=== PATIENT | male | born 1945 | race Native Hawaiian/Other Pacific Islander ===

== ENCOUNTER 2016-07-20 10:24 | Outpatient (CLI) | payer OTHER ==
[~2016-07-20 10:24] MED LIST: ASA LOW STR81 MG PO; FOLI1TAB26 PO; FOLIC ACID5 MG PO; ISOSORB MONO30 MG PO; METO25TA4 PO; NITR0.2D21 TD; NITRO-DUR0.4 MG/HR SL; NITROSTAT0.4 MG SL; PRAV40TA PO; PRAVACHOL20 MG PO; PROAIR HFA IN; SIMV20TA2 PO
[2016-07-20 10:43] LABS: PLATELET COUNT 186 K/uL (142-355)
[2016-07-20 11:57] LABS: POTASSIUM 4.6 mmol/L (3.6-5.2)
== END 2016-07-20 19:16 | disposition home or self-care (01) ==
LOC: LABW 10:24
PROVIDERS: Internal Medicine Cardiovascular Disease
DX: I25.10 Atherosclerotic heart disease of native coronary artery without angina pectoris (principal); E78.4 Other hyperlipidemia; I10 Essential (primary) hypertension; Z79.899 Other long term (current) drug therapy; Z51.81 Encounter for therapeutic drug level monitoring
CPT/HCPCS: 36415; 80048; 80061; 80076; 85027

== ENCOUNTER 2016-09-26 08:52 | Outpatient (CLI) | payer OTHER ==
[2016-09-26 09:21] LABS: POTASSIUM 4.8 mmol/L (3.6-5.2)
== END 2016-09-26 19:19 | disposition home or self-care (01) ==
LOC: LABW 08:52
PROVIDERS: Internal Medicine
DX: I10 Essential (primary) hypertension (principal)
CPT/HCPCS: 36415; 80053; 80061; 81000; 82043; 82570

== ENCOUNTER 2016-09-28 09:16 | Outpatient (CLI) | payer OTHER | END 2016-09-28 19:26 | disposition home or self-care (01) | LOC: RESP 09:16 | DX: J44.9 Chronic obstructive pulmonary disease, unspecified (principal) | CPT/HCPCS: 94640; 94664 ==

== ENCOUNTER 2016-09-30 09:42 | Outpatient (CLI) | payer OTHER | END 2016-09-30 10:45 | disposition home or self-care (01) | LOC: LAB 09:42 | DX: Z12.11 Encounter for screening for malignant neoplasm of colon (principal) | CPT/HCPCS: 82272 ==

== ENCOUNTER 2016-10-01 08:56 | Outpatient (CLI) | payer OTHER | END 2016-10-01 19:51 | disposition home or self-care (01) | LOC: LAB 08:56 | DX: Z12.11 Encounter for screening for malignant neoplasm of colon (principal) | CPT/HCPCS: 82272 ==

== ENCOUNTER 2016-10-02 11:57 | Outpatient (CLI) | payer OTHER | END 2016-10-02 13:30 | disposition home or self-care (01) | LOC: LAB 11:57 | DX: Z12.11 Encounter for screening for malignant neoplasm of colon (principal); Z79.899 Other long term (current) drug therapy | CPT/HCPCS: 82272 ==

== ENCOUNTER 2017-01-05 14:24 | Outpatient (CLI) | payer OTHER | END 2017-01-05 15:30 | disposition home or self-care (01) | LOC: RAD 14:24 | DX: J40 Bronchitis, not specified as acute or chronic (principal) ==

== ENCOUNTER 2017-05-10 08:12 | Outpatient (CLI) | payer OTHER | END 2017-05-10 19:05 | disposition home or self-care (01) | LOC: LABW 08:12 | PROVIDERS: Internal Medicine Cardiovascular Disease | DX: E78.4 Other hyperlipidemia (principal) | CPT/HCPCS: 36415; 80061 ==

== ENCOUNTER 2017-12-18 08:31 | Outpatient (CLI) | payer OTHER ==
[2017-12-18 09:41] LABS: PLATELET COUNT 173 K/uL (142-355)
[2017-12-18 10:01] LABS: POTASSIUM 4.3 mmol/L (3.6-5.2)
== END 2017-12-18 19:35 | disposition home or self-care (01) ==
LOC: US 08:31
PROVIDERS: Internal Medicine
DX: I10 Essential (primary) hypertension (principal); I71.4 Abdominal aortic aneurysm, without rupture
CPT/HCPCS: 36415; 80053; 80061; 81000; 84443; 85027

== ENCOUNTER 2018-01-03 09:11 | Outpatient (CLI) | payer OTHER | END 2018-01-03 19:17 | disposition home or self-care (01) | LOC: LABW 09:11 | PROVIDERS: Internal Medicine Cardiovascular Disease | DX: E78.5 Hyperlipidemia, unspecified (principal) | CPT/HCPCS: 36415; 80061 ==

== ENCOUNTER 2018-03-23 08:03 | Outpatient (CLI) | payer OTHER ==
[2018-03-23 08:54] LABS: PLATELET COUNT 196 K/uL (142-355)
[2018-03-23 08:58] LABS: POTASSIUM 4.7 mmol/L (3.6-5.2)
== END 2018-03-23 19:46 | disposition home or self-care (01) ==
LOC: LABW 08:03
PROVIDERS: Internal Medicine
DX: Z00.00 Encounter for general adult medical examination without abnormal findings (principal); E78.49 Other hyperlipidemia; Z12.5 Encounter for screening for malignant neoplasm of prostate
CPT/HCPCS: 36415; 80053; 80061; 81000; 84153; 84443; 85027

== ENCOUNTER 2018-04-27 12:20 | Emergency (ER) | payer OTHER ==
[~2018-04-27] VITALS: Ht 165.1 cm; Wt 65.8 kg
[2018-04-27 12:54] LABS: PLATELET COUNT 201 K/uL (142-355)
[2018-04-27 13:05] LABS: POTASSIUM 4.6 mmol/L (3.6-5.2); SODIUM 140 mmol/L (136-145)
[2018-04-27 13:35] LABS: PARTIAL THROMBOPLASTIN TIME 25.2 SECONDS (24.5-33.6)
[2018-04-27] MEDS ORDERED: DIOVAN40 MG PO (14:41)
[2018-04-27] MEDS ORDERED: PANTOPRAZOLE 40MG TA PO (14:42)
[2018-04-27] MEDS ORDERED: MOBIC7.5 M1 PO (14:42)
[2018-04-27] MEDS ORDERED: PRASUGREL10 MG PO (14:42)
[2018-04-27 14:50] VITALS: BP 109/60; TEMP 98
== END 2018-04-27 14:50 | disposition home or self-care (01) ==
LOC: ED 12:20
PROVIDERS: Emergency Medicine
DX: R07.89 Other chest pain (principal); I25.10 Atherosclerotic heart disease of native coronary artery without angina pectoris; R00.1 Bradycardia, unspecified
CPT/HCPCS: 36415; 80053; 82550; 84484; 85027; 85610; 85730; 93005; 99283

== ENCOUNTER 2018-05-03 07:57 | Outpatient (CLI) | payer OTHER ==
[~2018-05-03 07:57] MED LIST changes: +DIOVAN40 MG PO; +MOBIC7.5 M1 PO; +PANTOPRAZOLE 40MG TA PO; +PRASUGREL10 MG PO
== END 2018-05-03 21:40 | disposition home or self-care (01) ==
LOC: LABW 07:57
PROVIDERS: Internal Medicine Cardiovascular Disease
DX: E78.5 Hyperlipidemia, unspecified (principal)
CPT/HCPCS: 36415; 80061

== ENCOUNTER 2019-01-03 05:02 | Emergency (ER) | payer OTHER ==
[~2019-01-03] VITALS: Ht 165.1 cm; Wt 76.2 kg
[2019-01-03 05:52] LABS: PLATELET COUNT 213 K/uL (142-355)
[2019-01-03 06:24] LABS: POTASSIUM 4.8 mmol/L (3.6-5.2)
[2019-01-03 08:45] VITALS: BP 152/83; TEMP 99
== END 2019-01-03 08:45 | disposition home or self-care (01) ==
LOC: ED 05:02
PROVIDERS: Emergency Medicine
DX: R51 Headache (principal); R50.9 Fever, unspecified; R05 Cough
CPT/HCPCS: 36415; 80053; 81000; 85027; 87502; 87651; 93005; 96360; 99284

== ENCOUNTER 2019-01-17 08:43 | Outpatient (CLI) | payer OTHER | END 2019-01-17 23:19 | disposition home or self-care (01) | LOC: CT 08:43 | DX: R91.1 Solitary pulmonary nodule (principal) | CPT/HCPCS: 36415; 82565; 84520; Q9963 ==

== ENCOUNTER 2020-06-01 15:27 | Outpatient (CLI) | payer OTHER | END 2020-06-01 19:28 | disposition home or self-care (01) | LOC: US 15:27 | PROVIDERS: ATTEND Nurse Practitioner Family | DX: K44.9 Diaphragmatic hernia without obstruction or gangrene (principal); I77.811 Abdominal aortic ectasia ==

== ENCOUNTER 2020-12-29 08:49 | Emergency (ER) | payer OTHER ==
[~2020-12-29] VITALS: Ht 167.6 cm; Wt 84.4 kg
[2020-12-29 09:58] VITALS: BP 135/79; TEMP 97.6
== END 2020-12-29 10:00 | disposition home or self-care (01) ==
LOC: ED 08:49
DX: R03.0 Elevated blood-pressure reading, without diagnosis of hypertension (principal)
CPT/HCPCS: 99281

== ENCOUNTER 2021-01-13 10:40 | Outpatient (CLI) | payer OTHER ==
[2021-01-13 11:08] LABS: PLATELET COUNT 205 K/uL (142-355)
[2021-01-13 11:25] LABS: POTASSIUM 4.7 mmol/L (3.6-5.2)
== END 2021-01-13 23:00 | disposition home or self-care (01) ==
LOC: LABW 10:40
PROVIDERS: ATTEND Internal Medicine Cardiovascular Disease
DX: Z79.899 Other long term (current) drug therapy (principal)
CPT/HCPCS: 36415; 80053; 80061; 85027

== ENCOUNTER 2022-04-13 10:12 | Outpatient (CLI) | payer OTHER | END 2022-04-13 19:37 | disposition home or self-care (01) | LOC: RAD 10:12 | PROVIDERS: ATTEND Nurse Practitioner Family | DX: R05.3 Chronic cough (principal) ==

== ENCOUNTER 2022-06-28 08:11 | Outpatient (CLI) | payer OTHER | END 2022-06-28 19:35 | disposition home or self-care (01) | LOC: US 08:11 | PROVIDERS: ATTEND Nurse Practitioner Primary Care | DX: Z13.6 Encounter for screening for cardiovascular disorders (principal); I71.40 Abdominal aortic aneurysm, without rupture, unspecified; Z87.891 Personal history of nicotine dependence; Z09 Encounter for follow-up examination after completed treatment for conditions other than malignant neoplasm ==